=== PATIENT | male | born 1955 | race Caucasian/White ===

== ENCOUNTER 2017-03-30 07:00 | Inpatient (IN) | payer OTHER ==
--- NOTE | ~2017-03-30 | PN ---
Unit #: [id number] #: [id number] Patient: ARIANNA ALSTON [id number] [facility] [address] [place] [address] [id number] MR#: [id number] NAME: ARIANNA ALSTON ROOM: 80 Age: 61 Sex: M Admission Date: 03/30/2017 : 1955 Attending Physician: Cirilo Velasco M.D. Admitting Physician: Cirilo Velasco M.D. Primary Care Physician: Carmen Doctor Not In System [facility] PROGRESS NOTES DATE 04/01/2017 DISCUSSION Mr. Alston is a 61-year-old white male with alcohol dependence who was seen today and chart was reviewed and case was discussed with the staff. He has been anxious, withdrawn and rather seclusive to himself. Meanwhile, he has been cooperative with treatment recommendations and has been taking medications and tolerating them fairly well with no reported side effects. MENTAL STATUS EXAMINATION An elderly white male who was casually dressed with fair personal hygiene and appears to be in slight distress or discomfort as he goes through detox and was seen to be in wheelchair and has been unsteady on his feet. His mood was anxious with congruent affect. His speech is slow and restricted in content. His thought processes were disorganized with some looseness of associations. His insight and judgement remains slightly impaired. TREATMENT PLAN 1. Will continue on his current medications and treatment protocol. Will monitor his response to the medications and make further adjustments as needed. 2. Will continue to follow up. Dictated by... Herman Robledo/desean TD: 04/01/2017 21:08 JOB #: [id number] Unit #: [id number] #: [id number] Patient: ARIANNA ALSTON PROGRESS NOTES Page 1 of 1 X Cirilo Velasco MD PROGRESS NOTE
--- NOTE | ~2017-03-30 | PN ---
Unit #: [id number] #: [id number] Patient: ARIANNA ALSTON [id number] [facility] [address] [place] [address] [id number] MR#: [id number] NAME: ARIANNA ALSTON ROOM: [facility] Age: 61 Sex: M Admission Date: 03/30/2017 : 1955 Attending Physician: Cirilo Velasco M.D. Admitting Physician: Cirilo Velasco M.D. Primary Care Physician: Generic Doctor Not In System [facility] PROGRESS NOTES DATE April 04, 2017 DISCUSSION Mr. Alston is a 61-year-old white male, who was seen today and chart was reviewed and the case was discussed with the staff. He has been anxious, withdrawn, but has not shown any agitation, irritability, and has been cooperative with the treatment recommendations and he has been taking the medications and tolerating them fairly well with no reported side effects. MENTAL STATUS EXAMINATION An elderly white male, who was casually dressed with fair personal hygiene and appears to be in slight distress and discomfort. He was awake and alert with impaired attention and concentration. His mood is anxious with a congruent affect. He denies any suicidal or homicidal ideations, and also denies any auditory or visual hallucinations. His insight and judgment remain slightly impaired. TREATMENT PLAN 1. We will continue him on his current medications and treatment protocol, and will monitor his response to the medications, and make further adjustments as needed. 2. We will continue to followup. Dictated by... Herman Robledo/joss TD: 04/05/2017 08:29 JOB #: [id number] Unit #: [id number] #: [id number] Patient: ARIANNA ALSTON PROGRESS NOTES Page 1 of 1 X Cirilo Velasco MD X PROGRESS NOTE
--- NOTE | ~2017-03-30 | HP ---
Unit #: [id number] #: [id number] Patient: ARIANNA ALSTON [id number] [place] [address] [id number] I MR#: [id number] NAME: ARIANNA ALSTON ROOM: P180 Age: 61 Sex: M Admission Date: 03/30/2017 : 1955 Attending Physician: Cirilo Velasco M.D. Admitting Physician: Cirilo Velasco M.D. Primary Care Physician: Generic Doctor Not In System HISTORY AND PHYSICAL HISTORY OF PRESENT ILLNESS Arianna is a 61 year old admitted to [facility] because of his abuse of alcohol. PAST MEDICAL HISTORY 1. Long history of alcohol abuse. 2. History of withdrawal seizures. 3. History of mouth and neck cancer. a. Radical neck resection. 4. Hyperlipidemia. 5. High blood pressure. 6. COPD. PAST SURGICAL HISTORY As above. ALLERGIES Lisinopril (angioedema) SOCIAL HISTORY Smokes one pack per day. Drinks a pint plus a 12-pack on a daily basis and denies illicit drug use. FAMILY HISTORY Medically noncontributory. REVIEW OF SYSTEMS CONSTITUTIONAL: No fever or chills. HEENT: Denies any sore throat, ear pain or runny nose. CARDIOVASCULAR: Denies chest pain, irregular heart rhythm or palpitations. CHEST: Denies shortness of breath or cough. No hemoptysis. GASTROINTESTINAL: Denies nausea, vomiting, diarrhea or chronic constipation. ENDOCRINE: Denies history of increased thirst or urination. No recent significant weight loss or gain. GENITOURINARY: Denies dysuria, frequency, or hematuria. SKIN: Denies any rashes. HEMATOLOGIC: Denies history of increased bleeding or bruising. MUSCULOSKELETAL: Denies any hot, swollen joints. No generalized muscle pain. NEUROLOGIC: Denies problems with vision or speech. No frequent, severe headaches. No numbness, tingling or weakness in any extremities. Denies loss of bladder or bowel control. Unit #: [id number] #: [id number] Patient: ARIANNA ALSTON CURRENT MEDICATIONS 1. Detox protocol 2. Tenormin 50 mg q day 3. Revia 50 mg q day 4. Celexa 20 mg q day 5. Norvasc 5 mg q day 6. Lipitor 10 mg q day 7. Cardura 2 mg q day 8. Mysoline 100 mg t.i.d. 9. Methocarbamol 750 mg q.i.d. 10. Neurontin 300 mg t.i.d. PHYSICAL EXAMINATION GENERAL: Alert, appearing much older than his stated age of 61, in no apparent distress. VITAL SIGNS: Blood pressure 158/100, heart rate 88, respirations 16, temperature 98.6. WEIGHT: 175 pounds. HEIGHT: 6'0". SKIN: Warm and dry without rash or lesion. HEENT: Normocephalic. TMs not viewed. Oral and nasal passages clear. Conjunctivae clear. Pupils equal, round and reactive to light and accommodation. Extraocular movements intact. NECK: Supple without lymphadenopathy or thyromegaly. HEART: Regular rate and rhythm without murmur. LUNGS: Clear. ABDOMEN: Soft, nontender. : Not done. EXTREMITIES: No evidence of cyanosis, clubbing or edema. Moves all extremities without focal deficit. NEUROLOGICAL: Unable to complete extended exam. He does move all extremities without focal deficit. 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 Gait is unsteady so he is getting around with the assistance of a wheelchair. He is quite tremulous at this point in his detox. IMPRESSION Psychiatric admission. RECOMMENDATIONS PSYCHIATRIC: Per psychiatrist. MEDICAL: I see no contraindications to participating in facility's activities. MEDICAL PROGNOSIS Good. MEDICAL CONDITION Stable. Dictated by... Charissa Escalera P.A.-C. for Pastor Fish M.D. Unit #: [id number] #: [id number] Patient: ARIANNA ALSTON GISELLA/dominik TD: 03/30/2017 23:01 JOB #: [id number] HISTORY AND PHYSICAL Page 1 of 1 X Charissa Escalera HISTORY AND PHYSICAL
--- NOTE | ~2017-03-30 | PN ---
Unit #: [id number] #: [id number] Patient: ARIANNA ALSTON [id number] [facility] [address] [place] [address] [id number] I MR#: [id number] NAME: ARIANNA ALSTON ROOM: 80 Age: 61 Sex: M Admission Date: 03/30/2017 : 1955 Attending Physician: Cirilo Velasco M.D. Admitting Physician: Cirilo Velasco M.D. Primary Care Physician: Generic Doctor Not In System [facility] PROGRESS NOTES DATE OF SERVICE: 04/03/2017 SUBJECTIVE Mr. Alston is a 61-year-old white male, who was seen today and chart was reviewed and case was discussed with the staff. He has been still in detox and has been shaky and tremulous, has been making progress and has been able to get out of his wheelchair and use a wheelchair and use the wheelchair to hold and walk a little bit. Meanwhile, he has been taking the medications and tolerating them fairly well with no reported side effects. MENTAL STATUS EXAMINATION An elderly white male, who was casually dressed with fair personal hygiene, appears to be in no acute distress or discomfort. He was awake and alert on interaction with intact orientation. His mood was anxious with a congruent affect. He denied any suicidal or homicidal ideation. His insight and judgment was slightly impaired. TREATMENT AND PLAN 1. We will continue him on his current medications and treatment protocol. We will monitor his response to the medications and make further adjustments as needed. 2. We will continue to follow up. Dictated by... Herman Robledo/kolton TD: 04/04/2017 15:20 JOB #: [id number] Unit #: [id number] #: [id number] [facility] PROGRESS NOTES Page 1 of 1 X Cirilo Velasco MD PROGRESS NOTE
--- NOTE | ~2017-03-30 | DS ---
Unit #: [id number] #: [id number] Patient: [facility]ST[facility] [id number] [facility] [address] [place] [address] [id number] I MR#: [id number] NAME: ARIANNA ALSTON ROOM: P180 Age: 61 Sex: M Admission Date: 03/30/2017 : 1955 Discharge Date: 04/06/2017 Attending Physician: Cirilo Velasco M.D. Primary Care Physician: Generic Doctor Not In System DISCHARGE SUMMARY IDENTIFYING DATA Mr. Alston is a 61-year-old white male, who is a resident of [place], [place], and was transferred to us from [facility], where he presented with blood alcohol level of 0.118. CHIEF COMPLAINT "I've been drinking and I'm trying to quit." DISCHARGE DIAGNOSES Psychiatric: Alcohol dependence, moderate and acute withdrawals, alcohol-induced mood disorder. Medical: Hypertension, dyslipidemia, history of withdrawal seizures, history of delirium tremens. Stressors: Moderate psychosocial stressors. HISTORY OF PRESENT ILLNESS Please see initial psychiatric evaluation for details. PAST PSYCHIATRIC HISTORY Please see initial psychiatric evaluation for details. PAST MEDICAL HISTORY Please see initial psychiatric evaluation for details. HOSPITAL COURSE The patient was admitted to the adult chemical dependency unit at [facility] [place] and was oriented to the hospital environment. Routine p.r.n. medications were initiated, and he was started on alcohol detox protocol and was closely monitored as he was seen to be in acute distress and discomfort and was shaking, tremulous, unsteady on his feet to an extent, though we had to give him a wheelchair for the next few days; however, he was polite and pleasant and compliant with treatment recommendations and was taking the medications regularly and was tolerating them fairly well and was able to show a decent therapeutic response and was able to come out of the detox without any complications and was willing to continue treatment on an outpatient basis and as such, it was decided that he will be discharged home and will continue treatment on an outpatient basis. DISCHARGE MEDICATIONS None. DISCHARGE CONDITION Stable. Unit #: [id number] #: [id number] Patient: ARIANNA ALSTON PROGNOSIS Fair. Dictated by... Cirilo Velasco M.D. IAA/modl TD: 04/06/2017 07:38 JOB #: [id number] DISCHARGE SUMMARY Page 1 of 1 X Cirilo Velasco MD DISCHARGE SUMMARY
--- NOTE | ~2017-03-30 | PN ---
Unit #: [id number] #: [id number] Patient: ARIANNA ALSTON [id number] [facility] [address] [place] [address] [id number] MR#: [id number] NAME: ARIANNA ALSTON ROOM: P180 Age: 61 Sex: M Admission Date: 03/30/2017 : 1955 Attending Physician: Cirilo Velasco M.D. Admitting Physician: Cirilo Velasco M.D. Primary Care Physician: Generic Doctor Not In System [facility] PROGRESS NOTES DATE OF SERVICE 03/31/2017 SUBJECTIVE Mr. Alston is a 61-year-old white male, who was seen today and chart was reviewed and case was discussed with the staff. He was in his wheelchair and feeling shaky and tremulous when he is standing on his feet and appears to be actively recovering from detox symptoms. I also noticed poor personal hygiene and some slurring of speech. He has been unable to control his shakes and tremors. Meanwhile, no agitation or aggression has been noticed and it seemed that he is tolerating medication without any complications. MENTAL STATUS EXAMINATION An elderly white male, who was casually dressed with marginal personal hygiene, appears to be in slight distress or discomfort. He is awake and alert on interaction with intact orientation. His mood was anxious with a congruent affect. He denies any suicidal or homicidal ideations and also denies any auditory or visual hallucinations. His insight and judgment remain slightly impaired. TREATMENT PLAN 1. We will continue him on his current medications and detox protocol. We will monitor his response to medications and make further adjustments as needed. 2. We will continue to follow up. Dictated by... Herman Robledo/kolton TD: 03/31/2017 08:30 JOB #: [id number] Unit #: [id number] #: [id number] Patient: ARIANNA ALSTON PROGRESS NOTES Page 1 of 1 X Cirilo Velasco MD PROGRESS NOTE
--- NOTE | ~2017-03-30 | PA ---
Unit #: [id number] #: [id number] Patient: ARIANNA ALSTON [id number] [facility] [address] [place] [address] [id number] I MR#: [id number] NAME: ARIANNA ALSTON ROOM: P180 Age: 61 Sex: M Admission Date: 03/30/2017 : 1955 Date of Assessment: Attending Physician: Cirilo Velasco M.D. Admitting Physician: Cirilo Velasco M.D. Primary Care Physician: Generic Doctor Not In System PSYCHIATRIC ASSESSMENT DATE OF SERVICE 03/30/2017. IDENTIFYING DATA Mr. Alston is a 61-year-old white male, who is a resident of [place], [place], and was transferred to us from [facility] Emergency Room, where he presented with a blood alcohol level of 0.118. CHIEF COMPLAINT "I've been drinking, I'm trying to quit." HISTORY OF PRESENT ILLNESS Mr. Alston is a 61-year-old white male, who presented to the [facility] Emergency Room in [place], [place], stating alcohol use and withdrawal symptoms and indicated that he is trying to quit and he cannot do it on his own, "my own and when I tried to do it at home, I have seizure, so I came to the hospital." The patient states that he has been drinking a pint of liquor a day plus 8 beers a day and usually drinks 12 beers and a pint and stated that he is having significant withdrawal symptoms "shaking, not sleeping, stomach upset. I feel like vomit, anxiety." He was seen to be having visible shakes with CIWA of 18 indicating significant withdrawal symptoms along with history of withdrawal seizures and history of delirium tremens and was seen to be a significant danger to self and as such, recommendation for inpatient level of care for safety and stabilization was made and the patient was transferred to us. SUBSTANCE ABUSE HISTORY The patient reports long history of alcohol dependence, though he has experimented opioids and cannabis, he reports alcohol to be his drug of choice and reports that he has been drinking for the last 40 years and currently has been drinking a pint and 12 beers a day. PAST PSYCHIATRIC HISTORY The patient has had history of chemical dependency treatment in the past, and review of the medical records indicate that currently he is not active in any ongoing treatment program and is not seeing a psychiatrist, though he is still taking Celexa and has also been prescribed naltrexone to prevent alcohol relapse; however, it is not clear if he has been compliant without medications. PAST MEDICAL HISTORY Unit #: [id number] #: [id number] Patient: ARIANNA ALSTON The patient's medical history is significant for hypertension, dyslipidemia, history of withdrawal seizures, history of delirium tremens. ALLERGIES Lisinopril. PERSONAL AND SOCIAL HISTORY A 61-year-old white male, who reports that he is single, unemployed, and lives alone and has poor social support system. MENTAL STATUS EXAMINATION An elderly white male who was casually dressed with fair personal hygiene, appears to be in no acute distress or discomfort. He was awake and alert on interaction with intact orientation to time, place, and person. His mood was anxious and depressed with a congruent affect. His speech was slow and restricted in content. His thought processes were disorganized with some looseness of associations. He denies any suicidal or homicidal ideations and also denies any auditory or visual hallucinations. His insight and judgment remain significantly impaired. DIAGNOSTIC IMPRESSION Psychiatric: Alcohol dependence, moderate and acute withdrawals; alcohol-induced mood disorder. Medical: Hypertension, dyslipidemia, history of withdrawal seizures, history of delirium tremens. Stressors: Mild psychosocial stressors. TREATMENT PLAN 1. The patient has presented with a history of substance abuse and mood disorder, and has been decompensating and will need inpatient hospitalization for detoxification, safety, and stabilization. We will start him back on his home medications. We will adjust the medications and monitor response. 2. Supportive therapy was provided to the patient. 3. Safe, structured, and nourishing environment will be provided. ESTIMATED LENGTH OF STAY 5 to 7 days. ABILITY TO HELP SELF Limited. WILLINGNESS TO HELP SELF The patient appears to be willing to help self. STRENGTHS 1. Communicative. 2. Cooperative. PROBLEMS 1. Chronic dysphoric symptoms. 2. Chronic chemical dependency. 3. Poor social support system. DISCHARGE CRITERIA This will be contingent upon the patient's ability to go through detox without having any significant withdrawal symptoms as well as his ability to stay safe to himself, particularly after discharge from the hospital. Unit #: [id number] #: [id number] Patient: ARIANNA ALSTON Dictated by... Herman Robledo/kolton TD: 03/31/2017 07:14 JOB #: [id number] PSYCHIATRIC ASSESSMENT Page 1 of 1 X Cirilo Velasco MD PSYCHIATRIC ASSESSMENT
--- NOTE | ~2017-03-30 | PN ---
Unit #: [id number] #: [id number] Patient: ARIANNA ALSTON [id number] [facility] [address] [place] [address] [id number] I MR#: [id number] NAME: ARIANNA ALSTON ROOM: P180 Age: 61 Sex: M Admission Date: 03/30/2017 : 1955 Attending Physician: Cirilo Velasco M.D. Admitting Physician: Cirilo Velasco M.D. Primary Care Physician: Generic Doctor Not In System [facility] PROGRESS NOTES DATE 04/02/2017 DISCUSSION Mr. Alston is a 61-year-old white male who was seen today and chart was reviewed and case was discussed with the staff. He has been anxious, withdrawn and rather seclusive to himself and still has been in wheelchair as he has been tremulous with visible shakes and unsteady gait. Meanwhile, he has been taking medications and tolerating them fairly well with no reported side effects. MENTAL STATUS EXAMINATION An elderly white male who was casually dressed with fair personal hygiene and appears to be in no acute distress or discomfort. He was awake and alert on interaction with intact orientation. His mood was anxious with congruent affect. He denies any suicidal or homicidal ideation. His insight and judgement remains significantly impaired. TREATMENT PLAN 1. Will continue his current medications and treatment protocol. Will monitor his response to medications and make further adjustments as needed. 2. Will continue to follow up. Dictated by... Herman Robledo/desean TD: 04/02/2017 20:48 JOB #: [id number] Unit #: [id number] #: [id number] Patient: ARIANNA ALSTON PROGRESS NOTES Page 1 of 1 X Cirilo Velasco MD X PROGRESS NOTE
--- NOTE | ~2017-03-30 | PN ---
Unit #: [id number] #: [id number] Patient: ARIANNA ALSTON [id number] [facility] [address] [place] [address] [id number] I MR#: [id number] NAME: ARIANNA ALSTON ROOM: P180 Age: 61 Sex: M Admission Date: 03/30/2017 : 1955 Attending Physician: Cirilo Velasco M.D. Admitting Physician: Herman Robledo PROGRESS NOTES DATE OF SERVICE: 04/05/2017 SUBJECTIVE Mr. Alston is a 61-year-old white male with alcohol dependence, who was seen today and chart was reviewed and case was discussed with the staff. He is doing somewhat better and still has been in wheelchair, with shakes and tremors and unsteady gait, though he stated that he was trying to get out of his wheelchair and used the wheelchair to walker to take few steps, but still has been finding himself to be unsteady. He has been getting himself back in the wheelchair. He has been taking the medications and tolerating them fairly well with no reported side effects. MENTAL STATUS EXAMINATION An elderly white male, who was casually dressed with a fair personal hygiene, appears to be in slight distress or discomfort. He is awake and alert with intact orientation. His mood was anxious with a congruent affect. He denies any suicidal or homicidal ideations. His insight and judgment remain slightly impaired. TREATMENT PLAN 1. We will continue him on his current medications and treatment protocol. We will monitor his response to medications and make further adjustments as needed. 2. We will continue to follow up. Dictated by... Herman Robledo/nicolettel TD: 04/05/2017 07:58 JOB #: [id number] Unit #: [id number] #: [id number] Patient: ARIANNA ALSTON PROGRESS NOTES Page 1 of 1 X Cirilo Velasco MD PROGRESS NOTE
== END 2017-04-06 10:05 | DRG 897 ==
LOC: P1E 07:00
PROC: HZ2ZZZZ Detoxification Services for Substance Abuse Treatment (ICD-10-PCS; principal; 2017-03-30)
DX: F10.230 Alcohol dependence with withdrawal, uncomplicated (principal); F10.24 Alcohol dependence with alcohol-induced mood disorder; I10 Essential (primary) hypertension; E78.5 Hyperlipidemia, unspecified; J44.9 Chronic obstructive pulmonary disease, unspecified; Z88.8 Allergy status to other drugs, medicaments and biological substances; F17.210 Nicotine dependence, cigarettes, uncomplicated
CPT/HCPCS: 86592